=== PATIENT | male | born 1970 | race African-American/Black ===

== ENCOUNTER 2016-08-12 08:52 | Emergency (ER) | payer BC ==
[~2016-08-12] VITALS: Ht 180.3 cm; Wt 104.3 kg
[2016-08-12 08:57] VITALS: BP 141/92
--- NOTE | 2016-08-12 09:23 | PHYS DOC ---
Past Medical History Past Medical History: No Pertinent History Past Surgical History: Appendectomy Alcohol Use: Occasionally Drug Use: None Adult General Chief Complaint Chief Complaint: SORE THROAT HPI HPI Patient is a 45 year old male presents to the ER with complaint of atraumatic sore throat and RIGHT ear pain that began 2-3 days ago. Patient denies any fevers or chills. He denies any direct contact with anyone with strep throat or mononucleosis. He denies antibiotic use within the past 30 days. He denies hospitalization or foreign travel within the past 90 days. Patient denies any history of chronic medical conditions. Review of Systems Review of Systems Constitutional: Denies fever or chills [] Eyes: Denies change in visual acuity, redness, or eye pain [] HENT: Denies nasal congestion or sore throat [] Respiratory: Denies cough or shortness of breath [] Cardiovascular: No additional information not addressed in HPI [] GI: Denies abdominal pain, nausea, vomiting, bloody stools or diarrhea [] : Denies dysuria or hematuria [] Musculoskeletal: Denies back pain or joint pain [] Integument: Denies rash or skin lesions [] Neurologic: Denies headache, focal weakness or sensory changes [] Endocrine: Denies polyuria or polydipsia [] Allergies Allergies Allergies Coded Allergies Type Severity Reaction Last Updated Verified No Known Drug Allergies 08/18/14 No Physical Exam Physical Exam Constitutional: Well developed, well nourished, no acute distress, non-toxic appearance. Patient is afebrile. HENT: Normocephalic, atraumatic, bilateral external ears normal, oropharynx moist, no oral exudates, nose normal. Right tympanic membrane is retracted. There is mobility with Valsalva. There is no erythema, fluid meniscus or perforation. There is no evidence of mastoiditis. There is no trismus or hot potato speech. Posterior oropharynx is slightly erythematous. There are no exudative plaques to the tonsils, peritonsillar swelling or uvular deviation. Eyes: PERRLA, EOMI, conjunctiva normal, no discharge. [] Neck: Normal range of motion, no tenderness, supple, no stridor. There is no meningismus. There is no cervical lymphadenopathy. Cardiovascular:Heart rate regular rhythm, no murmur Lungs & Thorax: There is no respiratory distress respiratory fatigue. Lungs are clear to auscultation bilaterally] Abdomen: Bowel sounds normal, soft, no tenderness, no masses, no pulsatile masses. [] Skin: Warm, dry, no erythema, no rash. [] Back: No tenderness, no CVA tenderness. [] Extremities: No tenderness, no cyanosis, no clubbing, ROM intact, no edema. [] Neurologic: Alert and oriented X 3, normal motor function, normal sensory function, no focal deficits noted. [] Psychologic: Affect normal, judgement normal, mood normal. [] Current Patient Data Vital Signs Vital Signs Date Time Temp Pulse Resp B/P Pulse Ox O2 Delivery O2 Flow Rate FiO2 08/12/16 08:57 98 81 16 141/92 99 Room Air 98.0 Lab Values Laboratory Tests Test 08/12/16 09:20 Group A Streptococcus Rapid Negative (NEGATIVE) EKG EKG [] Radiology/Procedures Radiology/Procedures [] Course & Med Decision Making Course & Med Decision Making Rapid strep today is negative. Patient is afebrile. He has no known contacts with strep pharyngitis. patient will be contacted after review of throat culture if it is positive for strep.. Dragon Disclaimer Dragon Disclaimer This electronic medical record was generated, in whole or in part, using a voice recognition dictation system. Departure Departure Impression: Primary Impression: Pharyngitis Additional Impression: Eustachian tube dysfunction Disposition: 01 HOME, SELF-CARE Condition: GOOD Referrals: NO PCP (PCP) Patient Instructions: Otalgia-Brief, Viral and Bacterial Pharyngitis, Easy-to- Read Additional Instructions: 1. Rapid strep test here today is negative. A throat culture will be sent to the lab and you will be notified if it is positive. This takes approximately 2- 3 days. If you do not hear back from the emergency department, then the test is negative. 2. There is no evidence of infection in your right ear. As discussed, a tube call the eustachian tube may be somewhat blocked and not allowing pressure to equalize in your ear. 3. Review the discharge instructions provided for self-care and reasons to return to the emergency department. 4. Take the medication as prescribed. 5. Follow-up with a primary care doctor on Monday or of next week. If you do not have one, then use the pamphlet provided for assistance in finding a primary care doctor to address your medical concerns. Scripts Hydrocodone/Apap 5-325 ([place] 5-325 Tablet)1 Each Tablet1 Tab PO PRN Q6HRS PRN PAIN #10 TAB Prov:BERTIN HENLEY 08/12/16 Prednisone 50 Mg [id number] Mg PO DAILY eustachian tube dysfunction 5 Days Prov:BERTIN HENLEY 08/12/16 Problem Qualifiers BERTIN HENLEY Aug 12, 2016 09:23
[2016-08-12 09:48] LABS: NEGATIVE OBC STREP NEG; POSITIVE OBC STREP POS
[2016-08-12] MEDS ORDERED: HYDR-971 PO (09:56)
[2016-08-12] MEDS ORDERED: PRED50TA PO (09:56)
== END 2016-08-12 10:05 | disposition home or self-care (01) ==
LOC: ER 08:52
DX: J02.9 Acute pharyngitis, unspecified (principal); H69.81 Other specified disorders of Eustachian tube, right ear
CPT/HCPCS: 87070; 87880; 99284

== ENCOUNTER 2017-02-14 17:46 | Emergency (ER) | payer BC ==
[~2017-02-14] VITALS: Ht 180.3 cm; Wt 101.2 kg
[~2017-02-14 17:46] MED LIST: HYDR-971 PO; PRED50TA PO
[2017-02-14 19:27] VITALS: BP 134/75
--- NOTE | 2017-02-14 19:34 | PHYS DOC ---
Past Medical History Past Medical History: No Pertinent History Past Surgical History: Appendectomy Alcohol Use: Occasionally Additional Information: PT REPORTS HAVING "[employer]" [employer] WORK[employer]. 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 He denies any pain or discomfort. Patient states that he notices popping more when he is at home. He states whenever he is at work and ambulating throughout his place of employment he does not have any popping. Denies any numbness or tingling down to the lower extremity. Review of Systems Review of Systems Constitutional: Denies fever or chills [] Eyes: Denies change in visual acuity, redness, or eye pain [] HENT: Denies nasal congestion or sore throat [] Respiratory: Denies cough or shortness of breath [] Cardiovascular: No additional information not addressed in HPI [] GI: Denies abdominal pain, nausea, vomiting, bloody stools or diarrhea [] : Denies dysuria or hematuria [] Musculoskeletal: Denies back pain. Left knee popping, denies injury Integument: Denies rash or skin lesions [] Neurologic: Denies headache, focal weakness or sensory changes [] Endocrine: Denies polyuria or polydipsia [] Allergies Allergies Allergies Coded Allergies Type Severity Reaction Last Updated Verified No Known Drug Allergies 08/18/14 No Physical Exam Physical Exam Constitutional: Well developed, well nourished, no acute distress, non-toxic appearance. [] HENT: Normocephalic, atraumatic, bilateral external ears normal, oropharynx moist, no oral exudates, nose normal. [] Eyes: PERRLA, EOMI, conjunctiva normal, no discharge. [] Neck: Normal range of motion, no tenderness, supple, no stridor. [] Cardiovascular:Heart rate regular rhythm, no murmur [] Lungs & Thorax: Bilateral breath sounds clear to auscultation [] Abdomen: Bowel sounds normal, soft, no tenderness, no masses, no pulsatile masses. [] Skin: Warm, dry, no erythema, no rash. [] Extremities: No tenderness, no cyanosis, no clubbing, ROM intact, no edema. Assessment of the left knee without any tenderness noted. Peripheral pulses are 2+ cap refill brisk less than 2 seconds. Patient with full range of motion of the left knee. Neurologic: Alert and oriented X 3, normal motor function, normal sensory function, no focal deficits noted. [] Psychologic: Affect normal, judgement normal, mood normal. [] Current Patient Data Vital Signs Vital Signs Date Time Temp Pulse Resp B/P (MAP) Pulse Ox O2 Delivery O2 Flow Rate FiO2 02/14/17 18:05 98.3 88 18 98 Room Air 98.3 EKG EKG [] Radiology/Procedures Radiology/Procedures [] Course & Med Decision Making Course & Med Decision Making Pertinent Labs and Imaging studies reviewed. (See chart for details) X-rays were negative for any bony abnormalities per Dr. Steele. Patient will be placed in an Thad wrap with recommendations for the use of the Thad wrap for the next 5-7 days. He'll be provided with orthopedic name and number to follow up with. Signs and symptoms to return back to emergency department as been provided. Patient has requested a work note for today as he has missed work today. Dragon Disclaimer Dragon Disclaimer This electronic medical record was generated, in whole or in part, using a voice recognition dictation system. Departure Departure Impression: Primary Impression: Left knee pain Disposition: 01 HOME, SELF-CARE Condition: STABLE Referrals: NO PCP (PCP) MICHELLE MAR MD Patient Instructions: Knee Pain, [id number], Knee Wraps (Elastic Bandage) and RICE Additional Instructions: Activity as tolerated. Wear the Thad wrap for the next 5-7 days. You may take Tylenol or ibuprofen for any pain and discomfort. Ice packs on 20 minutes off 20 minutes several times a day as needed for any pain and discomfort or swelling. Follow-up with orthopedic in the next week. Return back to emergency prior signs symptoms of become worse. Problem Qualifiers Primary Impression: Left knee pain Chronicity: unspecified Qualified Codes: M25.562 - Pain in left knee VERONICA SORTO APRN Feb 14, 2017 19:34
--- NOTE | 2017-02-15 08:34 | RAD ---
EXAM: Left knee, 4 views. HISTORY: Pain and popping. COMPARISON: None. FINDINGS: Frontal, lateral, oblique and sunrise views of the left knee are obtained. There is no fracture, dislocation or subluxation. There is a small joint effusion. IMPRESSION: 1. No acute osseous finding. 2. Small joint effusion.
== END 2017-02-14 19:42 | disposition home or self-care (01) ==
LOC: ER 17:46
DX: M25.562 Pain in left knee (principal)
CPT/HCPCS: 73564; 99284

== ENCOUNTER 2018-08-17 01:52 | Emergency (ER) | payer BC ==
[~2018-08-17] VITALS: Ht 180.3 cm; Wt 104.3 kg
[~2018-08-17 01:52] MED LIST changes: +HYDR-3164 PO; -HYDR-971 PO
[2018-08-17 01:56] VITALS: BP 161/96
[2018-08-17] MEDS ORDERED: HYDROcodone/APAP 5/325MG 1 TAB TABLET ONE (02:34)
[2018-08-17] MEDS ORDERED: PRED20TA PO (02:42)
[2018-08-17] MEDS ORDERED: CARB200T PO (02:42)
[2018-08-17] MEDS ORDERED: HYDR-3164 PO (02:42)
--- NOTE | 2018-08-17 02:42 | PHYS DOC ---
Past Medical History Past Medical History: No Pertinent History Past Surgical History: Appendectomy Alcohol Use: Occasionally Drug Use: None Adult General Chief Complaint Chief Complaint: DENTAL PROBLEM HPI HPI Patient is a 47 year old male who presents to the ED with dental pain. It is on the right side of his face and presents as a lightning like shooting pain from his upper jaw to his yazdanism. This is brought on by chewing food on that side, hot drinks, and cold drinks. Easing an ice pack on the right side of his face has helped. The pain is a 10/10 sharp pain when it occurs. He has tried Tylenol [id number] which has not helped. Symptoms do not vary per time of day. Review of Systems Review of Systems Constitutional: Denies fever or chills [] Eyes: Denies change in visual acuity, redness, or eye pain [] HENT: Admits dental pain. Denies nasal congestion or sore throat [] Respiratory: Denies cough or shortness of breath [] Cardiovascular: Denies chest pain or palpitations. GI: Denies abdominal pain, nausea, vomiting, bloody stools or diarrhea [] : Denies dysuria or hematuria [] Musculoskeletal: Denies back pain or joint pain [] Integument: Denies rash or skin lesions [] Neurologic: Denies headache, focal weakness or sensory changes [] Complete systems were reviewed and found to be within normal limits, except as documented in this note. Current Medications Current Medications Current Medications Medications (Trade) Dose Ordered Sig/Ajith Start Time Stop Time Status Last Admin Dose Admin Acetaminophen/ Hydrocodone Bitart (Lortab 5/325) 1 tab 1X ONCE 08/17/18 02:45 08/17/18 02:46 DC 08/17/18 02:38 1 TAB Carbamazepine (TEGretol) 200 mg 1X ONCE 08/17/18 03:00 08/17/18 03:01 08/17/18 02:36 200 MG Dexamethasone (Decadron) 10 mg 1X ONCE 08/17/18 03:00 08/17/18 03:01 08/17/18 02:36 10 MG Allergies Allergies Allergies Coded Allergies Type Severity Reaction Last Updated Verified No Known Drug Allergies 08/18/14 No Physical Exam Physical Exam Constitutional: Well developed, well nourished, no acute distress, non-toxic appearance. [] HENT: No cavities, tooth breakage, swelling or signs of abscess noted. Dentition normal on upper right mandible. No pain elicited while tapping on teeth. Normocephalic, atraumatic, oropharynx moist, no oral exudates, nose normal. [] Eyes: EOMI, conjunctiva normal, no discharge. [] Neck: Normal range of motion, no tenderness, supple, no stridor. [] Cardiovascular: Heart rate regular rhythm, no murmur [] Lungs & Thorax: Bilateral breath sounds clear to auscultation [] Skin: Warm, dry, no erythema, no rash. [] Back: No tenderness, no CVA tenderness. [] Extremities: No tenderness, no cyanosis, no clubbing, ROM intact, no edema. [] Neurologic: Alert and oriented, normal motor function, normal sensory function, no focal deficits noted. [] Psychologic: Affect normal, judgement normal, mood normal. [] Current Patient Data Vital Signs Vital Signs Date Time Temp Pulse Resp B/P (MAP) Pulse Ox O2 Delivery O2 Flow Rate FiO2 08/17/18 02:38 18 08/17/18 01:56 97.8 71 161/96 (117) 99 Room Air 97.8 EKG EKG [] Radiology/Procedures Radiology/Procedures [] Course & Med Decision Making Course & Med Decision Making Pertinent Labs and Imaging studies reviewed. (See chart for details) Patient is a 47 year old male who presents to the ED with intermittent lightning-like dental pain exacerbated by cold drinks and stimulus to the area. Physical exam showed no cavities, tooth breakage, or abscess. History and physical exam point toward trigeminal neuralgia being the likely diagnosis. Discharging patient to home with hydrocodone when necessary for acute pain and carbamazepine for prophylaxis. Told patient to follow-up with PCP if and/or a neurologist for continued management of this condition. Patient is agreeable to this plan. Dragon Disclaimer Dragon Disclaimer This electronic medical record was generated, in whole or in part, using a voice recognition dictation system. Departure Departure Impression: Primary Impression: Trigeminal neuralgia of right side of face Disposition: HOME, SELF-CARE Condition: STABLE Referrals: NO PCP (PCP) ARUN MENJIVAR MD Patient Instructions: Trigeminal Neuralgia Scripts Carbamazepine (TEGRETOL) 200 Mg Tablet 1 TAB PO BID, #20 TAB 0 Refills Prov: CRISTA RANGEL DO 08/17/18 Prednisone (PREDNISONE) 20 Mg Tablet 2 TAB PO DAILY, #8 TAB Prov: CRISTA RANGEL DO 08/17/18 Hydrocodone/Apap 5-325 ([place] 5-325 TABLET) 1 Each Tablet 1 TAB PO PRN Q6HRS PRN for PAIN, #10 TAB 0 Refills Prov: CRISTA RANGEL DO 08/17/18 CRISTA RANGEL DO Aug 17, 2018 02:42
[2018-08-17] MEDS ORDERED: HYDROcodone/APAP 5/325MG 1 TAB TABLET PO ONE (02:45)
[2018-08-17] MEDS ORDERED: DEXAMETHASONE 4 MG TABLET PO ONE (03:00)
[2018-08-17] MEDS ORDERED: carBAMazepine 200 MG TABLET PO ONE (03:00)
== END 2018-08-17 03:04 | disposition home or self-care (01) ==
LOC: ER 01:52
DX: G50.0 Trigeminal neuralgia (principal); Z90.89 Acquired absence of other organs
CPT/HCPCS: 99284; J8540

== ENCOUNTER 2019-07-18 15:47 | Emergency (ER) | payer BC ==
[~2019-07-18] VITALS: Ht 177.8 cm; Wt 106.8 kg
[~2019-07-18 15:47] MED LIST changes: +CARB200T PO; +PRED20TA PO
[2019-07-18 16:07] VITALS: BP 170/105
[2019-07-18] MEDS ORDERED: GABA300C18 PO (16:29)
[2019-07-18] MEDS ORDERED: METH4TAB2 PO (16:29)
[2019-07-18] MEDS ORDERED: DICL50TA2 PO (16:29)
--- NOTE | 2019-07-18 16:30 | PHYS DOC ---
Past Medical History Past Medical History: No Pertinent History Past Surgical History: Appendectomy Smoking Status: Current Every Day Smoker Alcohol Use: Occasionally Drug Use: None Adult General Chief Complaint Chief Complaint: HAND PROBLEM HPI HPI Patient is a 48 year old male patient with no significant medical history presenting to the ED today complaining of right hand numbness with no tingling, symptoms have been going on intermittently for one year. 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 Denies any actual injury. Denies any pain. Review of Systems Review of Systems Constitutional: Denies fever or chills [] Eyes: Denies change in visual acuity, redness, or eye pain [] HENT: Denies nasal congestion or sore throat [] Respiratory: Denies cough or shortness of breath [] Cardiovascular: No additional information not addressed in HPI [] GI: Denies abdominal pain, nausea, vomiting, bloody stools or diarrhea [] : Denies dysuria or hematuria [] Musculoskeletal: Reports right hand numbness Integument: Denies rash or skin lesions [] Neurologic: Denies headache, focal weakness or sensory changes [] All other systems were reviewed and found to be within normal limits, except as documented in this note. Allergies Allergies Allergies Coded Allergies Type Severity Reaction Last Updated Verified No Known Drug Allergies 08/18/14 No Physical Exam Physical Exam Constitutional: Well developed, well nourished, no acute distress, non-toxic appearance. [] HENT: Normocephalic, atraumatic, bilateral external ears normal, oropharynx moist, no oral exudates, nose normal. [] Eyes: PERRLA, EOMI, conjunctiva normal, no discharge. [] Neck: Normal range of motion, no tenderness, supple, no stridor. [] Cardiovascular:Heart rate regular rhythm, no murmur [] Lungs & Thorax: Bilateral breath sounds clear to auscultation [] Abdomen: Bowel sounds normal, soft, no tenderness, no masses, no pulsatile masses. [] Skin: Warm, dry, no erythema, no rash. [] Back: No tenderness, no CVA tenderness. [] Extremities: Right hand with no obvious deformity, range of motion is intact. Positive Tinel sign. Adequate radial, medial, ulnar sensation to the right hand. +2 right radial pulse. Neurologic: Alert and oriented X 3, normal motor function, normal sensory function, no focal deficits noted. [] Psychologic: Affect normal, judgement normal, mood normal. [] Current Patient Data Vital Signs Vital Signs Date Time Temp Pulse Resp B/P (MAP) Pulse Ox O2 Delivery O2 Flow Rate FiO2 07/18/19 16:07 97.5 78 18 170/105 (126) 99 Room Air 97.5 EKG EKG [] Radiology/Procedures Radiology/Procedures [] Course & Med Decision Making Course & Med Decision Making Pertinent Labs and Imaging studies reviewed. (See chart for details) This is a 48-year-old male patient presenting to the ED today with right hand numbness for 1 year. 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 Physical exam consistent with carpal tunnel. Provided medical splint to the right hand read by the ED RN, neurovascular exam is intact. Provided orthopedic doctor for follow-up. Blood pressure was 170s about low 100s. No previous history of hypertension but recommended he follows up with the primary care doctor for possible high blood pressure. Diastolic changes also discussed. Provided doctor's list. Dragon Disclaimer Dragon Disclaimer This electronic medical record was generated, in whole or in part, using a voice recognition dictation system. Departure Departure Impression: Primary Impression: Numbness of right hand Additional Impressions: Carpal tunnel syndrome of right wrist BP (high blood pressure) Disposition: 01 HOME, SELF-CARE Condition: STABLE Referrals: NO PCP (PCP) follow up with a primary care doctor for blood pressure management LOLA MANZO MD follow up in 2 weeks Patient Instructions: Carpal Tunnel Syndrome, Hypertension Additional Instructions: You were seen in the emergency room with right hand numbness, we highly suspect you have carpal tunnel to your wrist. Wear the provided wrist brace as tolerated. Follow-up with the provided orthopedic doctor in 2-4 weeks. Also follow-up with the primary care doctor from the list provided. Try to ice and elevate the extremity. Scripts Methylprednisolone (MEDROL) 4 Mg Tab.ds.pk 1 PKG PO UD, #1 PKG Prov: MUTMARCELATAISHA [employer] FIELD MANAGER 07/18/19 Diclofenac Potassium (DICLOFENAC POTASSIUM) 50 Mg Tablet 1 TAB PO BID, #20 TAB 0 Refills Prov: MUTUNGATAISHA [employer] FIELD MANAGER 07/18/19 Gabapentin (GABAPENTIN ) 300 Mg Capsule 300 MG PO TID for NEUROGENIC PAIN, #20 CAP Prov: TAISHA APARICIO APRN 07/18/19 Problem Qualifiers Additional Impressions: BP (high blood pressure) Hypertension type: unspecified Qualified Codes: I10 - Essential (primary) hypertension TAISHA APARICIO APRN Jul 18, 2019 16:29
== END 2019-07-18 16:39 | disposition home or self-care (01) ==
LOC: ER 15:47
DX: G56.01 Carpal tunnel syndrome, right upper limb (principal); I10 Essential (primary) hypertension; R20.0 Anesthesia of skin; F17.200 Nicotine dependence, unspecified, uncomplicated; Z90.89 Acquired absence of other organs
CPT/HCPCS: 29125; 99283